=== PATIENT | female | born 1985 | race African-American/Black ===

== ENCOUNTER 2017-02-22 10:12 | Emergency (ER) | payer OTHER ==
[~2017-02-22] VITALS: Ht 165.1 cm; Wt 101.0 kg
[~2017-02-22 10:12] MED LIST: ALL DAY ALLERGY10 M3 PO; B VITAMINS; BENTYL20 MG PO; CALCIUM; DIFLUCAN150 MG PO; IRON 100 PLUS1 EACH PO; KEFLEX500 MG PO; MOTRIN800 MG PO; NASONEX; NYSTATIN-TRIAMC15 G1 TP; TYLENOL WITH C1 EACH PO; ULTRAM50 MG PO; VIT; [UNRECOGNIZED DRUG - OTHER]; [UNRECOGNIZED DRUG - OTHER]; [UNRECOGNIZED DRUG - REMARK]; sudafed
[2017-02-22 11:19] LABS: EOSINOPHIL (%) 2.3 % (0-5); EOSINOPHIL COUNT 0.1 K/uL (0-0.3); HEMATOCRIT 36.7 % (36.0-46.0); INSTRUMENT ABS NEUTROPHIL CT 2.1 K/uL; LYMPHOCYTE COUNT 2.6 K/uL (1.0-2.8); MCH 35.5 PG (29.0-34.0); MCHC 34.6 G/DL (30.0-36.0); MCV 102.5 FL (83-99); MEAN PLAT.VOLUME 9.2 uM^3 (9.5-12.4); MONOCYTE (%) 9.1 % (3-12); MONOCYTE COUNT 0.5 K/uL (0-0.8); NEUTROPHIL (%) 39.1 % (45-76); NEUTROPHIL COUNT 2.1 K/uL (1.8-6.4); PLATELET COUNT 227 K/uL (156-360); RED BLOOD COUNT 3.58 M/uL (3.80-5.20); WHITE BLOOD COUNT 5.3 K/uL (4.1-10.2)
[2017-02-22 11:31] LABS: D-DIMER ELISA 0.35 mg/L FEU (< 0.57)
[2017-02-22 11:32] LABS: CHLORIDE 108 mEq/L (99-109); POTASSIUM 3.2 mEq/L (3.7-5.4); SODIUM 139 mEq/L (136-147)
[2017-02-22 11:33] LABS: GLUCOSE 112 mg/dL (70-99)
[2017-02-22 11:35] LABS: ANION GAP 12 MEQ/L (2-14)
[2017-02-22 11:37] LABS: GFR ESTIMATE (CALCULATED) > 59 mL/min/
[2017-02-22 11:38] LABS: UREA NITROGEN (BUN) 11 mg/dL (9-23)
[2017-02-22 11:41] LABS: TROP-I INTERPRETATION NEGATIVE; TROPONIN-I < 0.01 ng/mL (0.0-0.30)
[2017-02-22] MEDS ORDERED: NAPROSYN500 MG PO (12:42)
[2017-02-22 13:02] VITALS: BP 127/97
== END 2017-02-22 13:04 | disposition home or self-care (01) ==
LOC: EME 10:12
PROVIDERS: Emergency Medicine
DX: R07.89 Other chest pain (principal); F17.200 Nicotine dependence, unspecified, uncomplicated
CPT/HCPCS: 71020; 80048; 84484; 85025; 85379; 93005; 99281; 99284